=== PATIENT | female | born 2000 | race Caucasian/White ===

== ENCOUNTER → 2019-09-02 11:23 | Outpatient (CLI) | payer OTHER | END | disposition home or self-care (01) | LOC: D.MAMMO 11:00 → D.US 11:23 | PROVIDERS: ATTEND Nurse Practitioner Family | DX: N63.13 Unspecified lump in the right breast, lower outer quadrant (principal) ==

== ENCOUNTER → 2019-09-09 10:14 | Outpatient (CLI) | payer OTHER | END | disposition home or self-care (01) | LOC: D.US 10:00 | PROVIDERS: ATTEND Family Medicine | DX: N63.13 Unspecified lump in the right breast, lower outer quadrant (principal) ==